=== PATIENT | male | born 1960 | race Caucasian/White ===

== ENCOUNTER → 2016-11-13 | Outpatient (CLI) | payer OTHER ==
[~2016-11-13] MED LIST: LISI1TAB13 PO; OXYC-533 PO; SULF1TAB42 PO; TRAZ-170 PO
--- NOTE | 2016-11-13 11:45 | DI ---
INDICATION: ITS.REASON: Z01.89 Encounter for other specified special examinations PROCEDURE: CHEST 2-VIEWS UPRIGHT (PA \T\ LAT) Encounter: Initial COMPARISON: None FINDINGS: The left lung base is poorly visualized and there is obscuration of the left hemidiaphragm. The right lung appears clear. The left upper lobe appears clear. No pneumothorax or pleural effusion. Cardiac silhouette appears mildly enlarged. Mediastinal contours and pulmonary vascularity appear normal. Mild degenerative change in the spine. Impression: Obscuration of the left hemidiaphragm could be due to scarring, pleural thickening or infiltrate. .
== END ==
LOC: IMA 11:04
PROVIDERS: ATTEND Family Medicine
DX: Z01.89 Encounter for other specified special examinations (principal); R93.8 Abnormal findings on diagnostic imaging of other specified body structures

== ENCOUNTER → 2016-11-16 | Outpatient (CLI) | payer OTHER ==
--- NOTE | 2016-11-16 09:01 | DI ---
Indication: ITS.REASON: R91.8 ABNORMAL FINDING LUNG FIELD PROCEDURE: CT CHEST HIGH RESOLUTION: Encounter: Initial Comparison: Chest x-ray dated November 13, 2016 Findings: The lungs are clear. No consolidative pneumonia, pleural effusion or pneumothorax. The central airways are patent. No worrisome pulmonary nodule or mass. Small 2 to 3 mm granuloma in the left lower lobe on axial image #40. The findings at chest x-ray appear to be due to a prominent epicardial fat pad and minimal lingular atelectasis or scarring. No axillary or mediastinal adenopathy by CT criteria. Trace anterior pericardial effusion. Heart size is mildly enlarged. The upper abdomen shows no acute findings. Impression: Negative chest CT. No acute disease process seen. .
== END ==
LOC: IMA 07:30
PROVIDERS: ATTEND Family Medicine
DX: R91.8 Other nonspecific abnormal finding of lung field (principal)